=== PATIENT | female | born 1990 | race Caucasian/White ===

== ENCOUNTER 2017-02-23 23:10 | Emergency (ER) | payer OTHER ==
--- NOTE | 2017-02-23 23:52 | ERNOTE ---
Abdominal HPI - General Chief Complaint: Abdominal Pain Time Seen by Provider: 02/23/17 23:36 Source: patient Exam Limitations: no limitations - Immun/Allergies/Home Medications Immunizatons: IMMUNIZATION HX Immunizations Up to Date Yes History of Influenza Vaccine No Hx Pneumococcal Vaccination No Allergies/Adverse Reactions: Allergies No Known Allergies Allergy (Verified 01/12/17 17:31) Home Medications: HOME MEDICATIONS Pnv95/Iron Fum/Folic Acid [ Tablet] 1 each PO DAILY #30 tablet 07/19/15 [Last Taken Unknown] Aspirin [Aspirin EC] 81 mg PO DAILY 01/12/17 [Last Taken Unknown] Acetaminophen 325 mg PO Q8H PRN 02/23/17 [Last Taken Unknown] Enoxaparin Sodium [Lovenox] SQ BID 02/23/17 [Last Taken Unknown] Ferrous Sulfate [Iron] 325 mg PO DAILY 02/23/17 [Last Taken Unknown] Ibuprofen [Motrin] 600 mg PO Q6H PRN 02/23/17 [Last Taken Unknown] traMADol HCL [Ultram] 50 - 100 mg PO QID PRN #20 tab 02/24/17 [Last Taken Unknown] - History of Present Illness Timing: constant Quality: moderate Modifying Factors - (Improves): Absent: analgesics - taking ibuprofen and tylenol without benefit Prior Treatment: Present: recently seen - by her OB and no testing was done. She is to follow up in 3 weeks Review of Systems - Review of Systems Constitutional: Absent: recent illness, fever, chills EYE: Present: no symptoms reported ENT: Present: no symptoms reported Respiratory: Present: no symptoms reported Cardiology: Present: no symptoms reported Gastrointestinal/Abdominal: Present: nausea. Absent: vomiting Genitourinary: Present: See HPI. Absent: discharge Musculoskeletal: Absent: back pain, muscle pain Skin: Present: no symptoms reported Hematologic/Lymphatic: Present: other - had post bleeding and anemia and was placed on lovenox for 6 weeks, pt does not know why - Patient's Past Medical History Patient History - Medical: No pertinent hx, Other Patient History - Cardiac/Respiratory: Other Patient History - Cancer: No Hx of Cancer Patient History - Surgical Procedures: Patient History - Other: None LMP (females 10-50): unknown LMP (Calendar): 05/29/15 - Family History Father Family History - Cardiac/Respiratory: Hypertension - Social History Living Situations: home Abuse History: No History of abuse Psych History: No pertinent hx Does anyone smoke in the home?: Yes Smoking Status: Never smoker Have you smoked in the past 12 months: No Do you dip or chew tobacco: No Alcohol Use: none Drug Use: none - Immunizations Immunizations Up to Date: Yes Hx Pneumococcal Vaccination: No History of Influenza Vaccine: No Physical Exam - Physical Exam General Appearance: Present: wd/wn, alert, no apparent distress Head Exam: Present: normal inspection Respiratory: Present: no respiratory distress, no accessory muscle use Gastrointestinal/Abdominal: Present: tenderness - along scar and uterus. Uterus feels firm and is tender, no specific areas of greatest tenderness. Absent: guarding, rebound Extremity Exam: Present: normal inspection, normal range of motion, no edema Neurological Exam: Present: alert, oriented, normal mood/affect Skin Exam: Present: normal color, warm/dry, other - surgical wound from c- section is in good condition, no erythema, no induration, no drainage ED Progress - Results and Orders Patient's Lab Results:: I have reviewed the patient's lab results. Results and Orders: Laboratory Tests 02/23/17 02/23/17 23:57 23:57 WBC 5.2 Hgb 10.7 L Hct 32.7 L Plt Count 293 Sodium 146 H Potassium 3.7 Chloride 108 H Carbon Dioxide 26.1 Anion Gap 15.6 H BUN 16 D Creatinine 0.91 Est GFR (Non-Af Amer) 80 D BUN/Creatinine Ratio 17.6 Random Glucose 129 H Calcium 8.3 Total Bilirubin 0.5 AST 21 ALT 41 Alkaline Phosphatase 120 Total Protein 6.8 Albumin 3.7 - Vital Signs Patient's Vital Signs:: I have reviewed the patient's vital signs. Vital Signs: Vital Signs 02/23/17 23:21 Temperature 36.6 C Pulse Rate 80 Respiratory 16 Rate Blood Pressure 137/97 O2 Sat by Pulse 98 Oximetry - Progress/Reassessment Chief Complaint: Abdominal Pain Progress Note-Subjective: 02/24/17 21:37 I spoke with the patient about her pain and bleeding, prior to discharge. I explained that she is on lovenox and being a blood thinner she will bleed longer than usual after her delivery. I explained that the presence of blood in her uterus is going to be irritating and she will continue to have more pain that she has had with previous deliveries. pt expressed understanding Departure - Departure Clinical Impression: bleeding Qualifiers: hemorrhage type: delayed hemorrhage Qualified Code(s): O72.2 - Delayed and secondary hemorrhage Disposition: Home Follow Up Needed Condition: Good Instructions: Hemorrhage Additional Instructions: See your regular OB doctor as soon as you can. Take the pain medications as needed for pain. Prescriptions: traMADol HCL [Ultram] 50 - 100 mg PO QID PRN #20 tab PRN Reason: Pain
[2017-02-24 00:01] LABS: Hematocrit 32.7 % (37.0-47.0); Hemoglobin 10.7 gm/dL (12.5-16.0); Mean Cell Volume 84.7 fl (78-100); Mean Corpuscular Hemoglobin 27.7 pg (27-31); Mean Corpuscular Hgb Conc 32.7 g/dl (32-36); Mean Platelet Volume 9.1 fl (6.0-9.5); Neutrophil # 2.6 K/mm3 (1.3-6.0); Neutrophil % 49.4 % (42-75.0); Platelet Count 293 K/mm3 (150-450); Red Blood Count 3.86 M/mm3 (4.2-5.4); Red Cell Distribution Width 14.2 % (11.5-14.0); White Blood Count 5.2 K/mm3 (4.0-10.5)
[2017-02-24 00:17] LABS: Albumin * 3.7 gm/dl (3.4-5.0); Anion Gap 15.6 mmol/L (6.8-13.8); BUN/Creatinine Ratio 17.6 (9.0-21.6); Bilirubin, Total 0.5 mg/dL (0.0-1.1); Ca. Corrected For Albumin 8.2 mg/dL (8.4-10.2); Calcium * 8.3 mg/dL (7.9-10.9); Carbon Dioxide 26.1 mmol/L (24-32.6); Potassium 3.7 mmol/L (3.4-4.6); Total Protein 6.8 gm/dL (6.2-8.2)
[2017-02-24] MEDS ORDERED: NALBUPHINE HCL 20 MG/ML AMPUL IV ONE (01:54)
[2017-02-24] MEDS ORDERED: ONDANSETRON HCL/PF 2 MG/ML VIAL IV ONE (01:54)
[2017-02-24] MEDS ORDERED: ONDANSETRON HCL/PF 2 MG/ML VIAL ONE (01:56)
[2017-02-24] MEDS ORDERED: NALBUPHINE HCL 20 MG/ML AMPUL ONE (01:57)
[2017-02-24] MEDS ORDERED: traMADol HCL 50 MG TABLET PO ONE (02:11)
[2017-02-24] MEDS ORDERED: traMADol HCL 50 MG TABLET ONE (02:19)
[2017-02-24 02:31] VITALS: BP 140/89
== END 2017-02-24 02:28 | disposition home or self-care (01) ==
LOC: ER 23:10
DX: O72.2 Delayed and secondary postpartum hemorrhage (principal)
CPT/HCPCS: 36415; 80053; 85025; 96374; 96375; 99284; J2405

== ENCOUNTER 2017-04-20 08:33 | Emergency (ER) | payer OTHER ==
[2017-04-20 08:41] VITALS: BP 142/89
--- NOTE | 2017-04-20 09:39 | ERNOTE ---
ENT HPI Presenting Symptoms: other - sore throat Time Seen by Provider: 04/20/17 09:05 Source: patient Exam Limitations: no limitations - Immun/Allergies/Home Medications Immunizations: IMMUNIZATION HX Immunizations Up to Date Yes History of Influenza Vaccine No Hx Pneumococcal Vaccination No Allergies/Adverse Reactions: Allergies Allergy/AdvReac Type Severity Reaction Status Date / Time No Known Allergies Allergy Verified 04/20/17 08:41 Home Medications: HOME MEDICATIONS Acetaminophen 325 mg PO Q8H PRN 02/23/17 [Last Taken Unknown] Ferrous Sulfate [Iron] 325 mg PO DAILY 02/23/17 [Last Taken Unknown] Ibuprofen [Motrin] 600 mg PO Q6H PRN 02/23/17 [Last Taken Unknown] Amoxicillin 875 mg PO BID #20 tablet 04/20/17 [Last Taken Unknown] - History of Present Illness Narrative: Mother presents with a sore throat over the last 24-48 hours she describes it as mild in intensity Severity: Present: mild ENT Location: Present: throat Prearrival Treatment: Present: no prearrival treatment Modifying Factors - Worsens: Reports: nothing Associated Symptoms - ENT: Reports: denies symptoms Review of Systems - Review of Systems Constitutional: Present: See HPI EYE: Present: no symptoms reported ENT: Present: sore throat Respiratory: Present: no symptoms reported Cardiology: Present: no symptoms reported Gastrointestinal/Abdominal: Present: no symptoms reported Genitourinary: Present: no symptoms reported Musculoskeletal: Present: no symptoms reported Skin: Present: no symptoms reported Neurological: Present: no symptoms reported Endocrine: Present: no symptoms reported Hematologic/Lymphatic: Present: no symptoms reported Psych: Present: no symptoms reported - Patient's Past Medical History Patient History - Medical: No pertinent hx, Other Patient History - Cardiac/Respiratory: Other Patient History - Cancer: No Hx of Cancer Patient History - Surgical Procedures: Patient History - Other: None LMP (Calendar): 05/29/15 - Family History Father Family History - Cardiac/Respiratory: Hypertension - Social History Living Situations: home Abuse History: No History of abuse Psych History: No pertinent hx Does anyone smoke in the home?: Yes Alcohol Use: none Drug Use: none - Immunizations Immunizations Up to Date: Yes Hx Pneumococcal Vaccination: No History of Influenza Vaccine: No Physical Exam - Physical Exam General Appearance: Present: wd/wn, alert, no apparent distress Head Exam: Present: normal inspection Eye Exam: Normal inspection: bilateral, PERRL: bilateral Ears, Nose, Throat: Present: pharyngeal erythema Neck: Present: normal inspection, nontender Respiratory: Present: no respiratory distress, normal breath sounds, no accessory muscle use, chest nontender, lungs clear Cardiovascular/Chest: Present: regular rate, rhythm, no murmur, normal peripheral pulses Gastrointestinal/Abdominal: Present: normal bowel sounds, nontender, nondistended, soft, no organomegaly Rectal Exam: Present: deferred Back Exam: Present: normal inspection, normal range of motion Extremity Exam: Present: normal inspection, non-tender, no edema, normal range of motion Neurological Exam: Present: alert, oriented, normal mood/affect Skin Exam: Present: normal color, warm/dry Lymphatic Exam: Present: no adenopathy ED Progress - Results and Orders Patient's Lab Results:: I have reviewed the patient's lab results. - Vital Signs Patient's Vital Signs:: I have reviewed the patient's vital signs. Vital Signs: Vital Signs 04/20/17 08:38 Temperature 36.2 C L Pulse Rate 85 Respiratory 14 Rate Blood Pressure 142/89 O2 Sat by Pulse 98 Oximetry - Progress/Reassessment Chief Complaint: Sore Throat Plan - Plan Plan: The mother and her 2 children appear to be sharing a common pathogen and mother will also be treated with Amoxil and she could follow-up with her family physician as needed. Departure Clinical Impression: Pharyngitis Qualifiers: Pharyngitis/tonsillitis etiology: other specified organisms Qualified Code(s): J02.8 - Acute pharyngitis due to other specified organisms - Departure Disposition: Home self-care Condition: Good Instructions: Pharyngitis, [id number] Prescriptions: Amoxicillin 875 mg PO BID #20 tablet
== END 2017-04-20 09:37 | disposition home or self-care (01) ==
LOC: ER 08:33
DX: J02.8 Acute pharyngitis due to other specified organisms (principal)

== ENCOUNTER 2017-06-28 15:06 | Emergency (ER) | payer OTHER ==
[2017-06-28 15:16] VITALS: BP 150/95
[2017-06-28] MEDS ORDERED: HYDROcodone/ACETAMINOPHEN 1 EACH TABLET PO ONE (16:07)
[2017-06-28] MEDS ORDERED: HYDROcodone/ACETAMINOPHEN 1 EACH TABLET ONE (16:12)
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
== END 2017-06-28 16:31 | disposition home or self-care (01) ==
LOC: ER 15:06
PROC: 2W39X1Z Immobilization of Left Upper Extremity using Splint (ICD-10-PCS; principal; 2017-06-28)
DX: S52.022A Displaced fracture of olecranon process without intraarticular extension of left ulna, initial encounter for closed fracture (principal); Y04.2XXA Assault by strike against or bumped into by another person, initial encounter

== ENCOUNTER 2017-06-30 10:24 | Day surgery (SDC) | payer OTHER ==
[~2017-06-30 10:24] MED LIST: HYDROmorphone HCL 2 MG/ML VIAL IV PRN; RINGER'S SOLUTION,LACTATED 1,000 ML IV PRN; ceFAZolin SODIUM 1 GM VIAL IV PRN; oxyCODONE HCL/ACETAMINOPHEN 1 TAB TABLET PO PRN
--- NOTE | 2017-06-30 13:27 | POSTOP NO ---
Date of Surgery: 06/30/17 Anesthesia: General Patient Tolerated the Procedure: Well Post Operative Diagnosis/Procedures: Aluminum Polisher: Manuel Galaviz PA-C Post-operative Diagnosis: Closed Left displaced intra-articular olecranon fracture Finding: Above Procedure: Open reduction internal fixation of left olecranon fracture Estimated Blood Loss: Minimal Specimens: None
--- NOTE | 2017-06-30 13:55 | OR ---
Anesthesia Procedure Note - Anesthesia Procedure Note Date of Service: 06/30/17 Narrative: Vital Signs - Last Taken Temp 36.3 C L 06/30/17 13:45 Pulse 82 06/30/17 13:45 Resp 20 06/30/17 13:45 BP 140/79 06/30/17 13:45 Pulse Ox 94 06/30/17 13:45 O2 Oxygen Delivery Method Nasal Cannula 06/30/17 13:53 ANESTHESIA PROCEDURE NOTE Date of Procedure: 06/30/2017. Time of procedure: 1130. Performed by: Mickey Soto CRNA Dining Services Director: None. Preprocedure diagnosis: Left olecranon fracture. Post procedure diagnosis: Same. Procedure: Left ultrasound guided supraclavicular nerve block for postoperative analgesia. Indications: The patient is a 27 -year-old female, who is requesting a left ultrasound guided supraclavicular nerve block for postoperative analgesia related to ORIF of left olecranon fracture. Findings: See below. Details of the procedure: The tissue over the intended target site was cleansed with ChloraPrep. 1 ml Lidocaine 1 % was infiltrated to the skin and subcutaneous tissue. Under sterile technique and ultrasound guidance a 22-gauge block needle was inserted to the left braclial plexus nerve bundle superior to the clavicle and lateral to the axillary artery. 40 mL's of 0.5% bupivacaine plus epinephrine 1:200,000 was injected after negative aspiration for blood. Needle tip and spread of local anesthetic around the brachial plexus was observed throughout the injection with realtime ultrasound visualization. The needle was removed intact. No complications were noted. The images were retained in the hospital medical database . EBL: Minimal. Fluids: N/A. Specimen: N/A. Post procedure condition: The patient tolerated the procedure well. No complications were noted. Thank you for this consultation. Mickey Soto CRNA
[2017-06-30] MEDS ORDERED: RINGER'S SOLUTION,LACTATED 1,000 ML IV PRN (15:26)
[2017-06-30 16:36] VITALS: BP 122/75
== END 2017-06-30 10:25 | disposition home or self-care (01) ==
LOC: AMB 10:24
PROVIDERS: ATTEND Orthopaedic Surgery
PROC: 3E0T3BZ Introduction of Anesthetic Agent into Peripheral Nerves and Plexi, Percutaneous Approach (ICD-10-PCS; 2017-06-30)
PROC: 0PSL04Z Reposition Left Ulna with Internal Fixation Device, Open Approach (ICD-10-PCS; principal; 2017-06-30 12:30)
DX: S52.032A Displaced fracture of olecranon process with intraarticular extension of left ulna, initial encounter for closed fracture (principal); Y04.8XXA Assault by other bodily force, initial encounter; Z68.41 Body mass index [BMI] 40.0-44.9, adult